=== PATIENT | male | born 1990 | race Caucasian/White ===

== ENCOUNTER 2016-12-18 19:17 | Observation (INO) | payer OTHER ==
[~2016-12-18] VITALS: Ht 177.8 cm; Wt 64.0 kg
[2016-12-18 19:29] VITALS: BP 112/69; PULSE 76; RESP 16; O2SAT 100
[2016-12-18 19:48] VITALS: BP 128/68; PULSE 63; RESP 14; O2SAT 100
[2016-12-18 20:01] LABS: BASOPHILS % (AUTO) 0.1 % (0-3); EOSINOPHILS % (AUTO) 0 % (0-5); MONOCYTES % (AUTO) 1.8 % (4-12); Mean Corpuscular Hemoglobin 29.8 pg (27.0-35.0); Mean Corpuscular Volume 87.2 fL (81-100); NEUTROPHILS % (AUTO) 91.2 % (40-74); Platelet Count 292 bil/L (150-400)
[2016-12-18 20:27] LABS: Magnesium 1.6 mg/dL (1.6-2.6)
[2016-12-18] MEDS ORDERED: Pantoprazole 4 mg/mL 10 mL Inj IVPUSH ONE (20:50)
[2016-12-18] MEDS ORDERED: MetoCLOpramide 5 mg/mL 2 mL Inj IVPUSH ONE (20:50)
--- NOTE | 2016-12-18 20:52 | ED.REPORT ---
HPI-General Illness Date of Service Dec 18, 2016 ED Provider: Zack Bhatia MD This is a 26 year old male with a history of Type 1 DM presenting to the emergency department complaining of vomiting that worsened 2 weeks ago. Pt previously diagnosed with gastroparesis. Reports frequent vomiting and inability to keep PO down. Associated symptoms include esophageal burning sensation. Pt taking Tums which have not provided relief. Denies changes in blood sugars despite not being able to eat or drink. Not taking antacids or anti -nausea medications. Pt been evaluated several times with similar presentation, last at [facility] 2 days ago, treated with anti-emetics. Nursing Notes Stated Complaint: VOMITING,DEHYDRATED Chief Complaint: Male Abdominal Pain Nursing Notes Reviewed: Yes Allergies: Coded Allergies: No Known Allergies (Unverified , 12/18/16) Scheduled Insulin Detemir (Levemir U100 Insulin Vial) 100 Unit/1 Ml Vial 20 UNIT SUBQ DAILYWD Insulin Human Lispro (HumaLOG U100 Insulin Vial) 100 Unit/Ml Unit 4-5 UNIT SUBQ TIDWM Only if eats Omeprazole (Omeprazole) 20 Mg Capsule.dr 20 MG PO BID Sertraline HCl (Sertraline) 20 Mg/1 Ml Oral.conc 50 MG PO HS Scheduled PRN Lorazepam (Ativan) 0.5 Mg Tablet 0.5 MG PO TID PRN PRN For Nausea Metoclopramide (Reglan) 5 Mg Tablet 5 MG PO QID PRN PRN For Nausea Omeprazole (Omeprazole) 20 Mg Capsule.dr 20 MG PO QAM PRN PRN For Dyspepsia or Heartburn General Time Seen by MD: 19:43 Chief Complaint Vomiting Hx Obtained From: Patient Arrived By: Walk-in Sudden in Onset?: Yes Onset Occurred: More than a week ago... (2 weeks) Symptom Duration: Since onset Severity: Current: Mild Pertinent Negative: Pt denies other symptoms Recent Healthcare: No recent hospitalization, Recent doctor visit Similar Sx Previous: No Past Medical History Past Medical History Reports: Diabetes mellitus Past Surgical History Denies Ambulatory Status Independent Review of Systems Full Review of Systems Constitutional: Denies: Chills, Fever Respiratory: Denies: Non-productive cough, Shortness of breath GI: Reports: Abdominal pain, Nausea, Vomiting, Denies: Constipation, Diarrhea, Hematemesis, Hematochezia Neurologic: Denies: Headache Complete sys rev & neg: except as marked. Physical Exam Vital Signs Vital Signs Date Time Temp Pulse Resp B/P Pulse Ox O2 Delivery O2 Flow Rate FiO2 12/18/16 19:48 63 14 128/68 100 Room Air 12/18/16 19:29 36.1 76 16 112/69 100 Room Air Initial VS: Reviewed Head / Eyes: Atraumatic, Normocephalic, PERRL Neck: Supple, Non-tender, Full range of motion Respiratory: Breath sounds normal, Clear to auscultation, No respiratory distress Cardiovascular: Regular rate & rhythm, Heart sounds normal, Intact distal pulses Extremities: Vascular intact, Neuro intact, No swelling, No tenderness Skin: Warm, Dry, No cyanosis Neurologic: Alert, Oriented, Nonfocal Psychiatric: Mood/affect normal, Behavior normal, Normal thought content General/Constitutional: Awake, Alert Pale ENT: Airway patent Mouth: Positive: Mucous membranes dry Abdomen: Soft, No guarding, No rebound, BS normoactive Tenderness/Guarding/Rebound: Positive: Tender epigastric Interpretation & Diagnostics Lab Results Interpretation Result Diagram: 12/18/16194212/18/161942 Test 12/18/16 19:43 12/18/16 20:20 White Blood Count 10.5th/mm3 (3.8-10.1) Red Blood Count 4.70mil/mm3 (4.40-5.80) Hemoglobin 14.0g/dL (13.8-17.2) Hematocrit 41.0% (41.0-50.0) Mean Corpuscular Volume 87.2fL (81-100) Mean Corpuscular Hemoglobin 29.8pg (27.0-35.0) Mean Corpuscular Hemoglobin Concent 34.1% (32.0-37.0) Red Cell Distribution Width 12.2% (12.3-15.4) Platelet Count 292bil/L (150-400) Neutrophils (%) (Auto) 91.2% (40-74) Lymphocytes (%) (Auto) 6.6% (14-46) Monocytes (%) (Auto) 1.8% (4-12) Eosinophils (%) (Auto) 0% (0-5) Basophils (%) (Auto) 0.1% (0-3) Hold Purple Top Tube Received (Received) Hold Blue Top Tube Received (Received) Sodium Level 136mEq/L (134-144) Potassium Level 4.3mEq/L (3.5-5.2) Chloride Level 91mEq/L (97-108) Carbon Dioxide Level 28mmol/L (18-29) Blood Urea Nitrogen 14mg/dL (6-20) Creatinine 0.94mg/dL (0.76-1.27) Estimat Glomerular Filtration Rate 102mL/min (>59) Glucose Level 387mg/dL (60-99) Calcium Level 9.5mg/dL (8.5-10.1) Magnesium Level 1.6mg/dL (1.6-2.6) Total Bilirubin 0.5mg/dL (0.0-1.2) Aspartate Amino Transf (AST/SGOT) 38U/L (0-50) Alanine Aminotransferase (ALT/SGPT) 36U/L (0-44) Alkaline Phosphatase 90U/L (25-150) Total Protein 8.0g/dL (6.4-8.4) Albumin 4.8g/dL (3.4-5.0) Lipase 12U/L (13-60) Hold [place] Top Tube Received (Received) Hold Vincent Top Tube Received (Received) Urine Color Yellow (YELLOW) Urine Appearance Hazy (CLEAR,HAZY) Urine pH 5.5 (5.0-8.0) Urine Specific [place] 1.015 (1.003-1.035) Urine Protein Negativemg/dL (NEG,TRACE) Urine Glucose (UA) 500mg/dL (NEGATIVE) Urine Ketones 80mg/dL (NEGATIVE) Urine Occult Blood Small (NEGATIVE) Urine Nitrite Negative (NEGATIVE) Urine Bilirubin Negative (NEGATIVE) Urine Urobilinogen Normalmg/dL (NORMAL) Urine Leukocyte Esterase Negative (NEGATIVE) Urine RBC 3-10/hpf (0-2) Urine WBC 0-5/hpf (0-5) Urine Epithelial Cells Occasional/hpf (NONE-MOD) Urine Crystals None seen (NONE SEEN) Urine Bacteria Few/hpf (NONE-FEW) Urine Hyaline Casts None/lpf (NONE) Urine Granular Casts None seen (NONE SEEN) Urine Waxy Casts None seen (NONE SEEN) Urine Red Blood Cell Casts None seen (NONE SEEN) Urine White Blood Cell Casts None seen (NONE SEEN) Urine Mucus None seen (None Seen) Urine Trichomonas None seen (NONE SEEN) Urine Yeast None (NONE SEEN) Urinalysis Comment None Urine Culture Reflexed Not indicated Hold Urine Received (Received) Re-Eval/Medical Decision Med Decision/Clinical Course Patient is a 26-year-old male with a history of type I diabetes who is presented to the emergency department for several months of progressively worsening regurgitation of his gastric contents, GERD, decreased appetite and a 30 pound weight loss that is been unintentional. He has been seen in 3 different emergency departments and diagnosed a gastroparesis though BuSpar has been unable to control his symptoms. He is accompanied by family and friends who are very concerned about the degree of his recent decline. Upon arrival, the patient is pale and generally unwell-appearing with gagging into an emesis bag. Laboratory studies were notable as below: Urine Dip positive ketones, glucose, and blood CBC unremarkable glucose elevated 387 CMP otherwise unremarkable anion gap 17 Given: IV fluids, Benadryl, Reglan, IV pantoprazole Patient was evaluated thereafter and continued to be uncomfortable with inability to tolerate PO. At this time, the patient is been seen in 3 different emergency departments and has failed to adequately control his symptoms on an outpatient basis. After discussing this with the patient as well as family and friends they do not feel comfortable with discharge at this moment. The patient will be maintained in the emergency department with ongoing IV fluids and antibiotics. If we are unable to adequately control her symptoms he will be admitted. He was quite anxious and tightness 1 mg of IV Ativan. My assessment of the patient he was feeling better but needed more time to see if he would be able to tolerate PO. Patient will be reassessed with plan for discharge with omeprazole, Ativan as needed and Reglan for nausea. Time of Eval: 21:28 Patient Status: Condition unchanged Re-Evaluation/Progress Note: Condition unchanged, plan for re-evaluation. Consultation : Referral / Consult Name: Larry Garcia MD Consulted With: Hospitalist Call Returned at: 21:35 Continuous Miner: Agrees with eval, Agrees with plan Counseled Regarding: Diagnosis, Lab results, Need for follow-up, Need for admission Discharge & Departure Primary Impression: Gastroparesis Additional Impressions: Diabetes Diabetes mellitus type: type 1 Diabetes mellitus complication status: with unspecified complications Qualified Code: E10.8 - Type 1 diabetes mellitus with unspecified complications Dehydration Discharge Condition All VS Reviewed: Yes Condition: Stable Patient Instructions: Diabetic gastroparesis (GEN) Additional Instructions: Thank you for seeking care at emergency room. It is difficult for us to make definitive diagnoses in the ED but we believe that you are experiencing gastroparesis. Our primary goal today in the ED was to evaluate you for any life-threatening conditions. Your evaluation was reassuring. Take medications as prescribed. Reglan for nausea control, Ativan for breakthrough nausea and anxiety, and omeprazole as needed for acid reflux. You should follow-up with the GI doctor listed below, call tomorrow morning to schedule an appointment for further evaluation of your symptoms. You should return to the ED immediately if you develop fevers, vomiting, cough, shortness of breath, chest pain, lightheadedness, weakness or any other concerning signs or symptoms. Thank you for letting us partake in your care today. Referrals: Kirill Bennett MD Care Transferred to: Dr. Quintana at a change of shift Care Transferred at: 00:00 Scribe Attestation Portions of this note were transcribed by Deena Land. I, Dr. Bhatia personally performed the history, physical exam and medical decision-making; I reviewed and confirmed the accuracy of the information in the transcribed note. Signed by: milton Ho. 12/18/2016, 23:30. Zack Bhatia MD Dec 18, 2016 20:52 DEENA LAND Dec 18, 2016 20:59
[2016-12-18] MEDS ORDERED: 0.9% Sodium Chloride 1,000 ML IV ONE ×2 (20:55→23:25)
[2016-12-18 21:17] LABS: APPEARANCE,URINE HAZY (CLEAR,HAZY); COLOR,URINE YELLOW (YELLOW); OCCULT BLOOD,URINE SMALL (NEGATIVE); PH,URINE 5.5 (5.0-8.0); UROBILINOGEN,URINE NORMAL (NORMAL)
[2016-12-18] MEDS ORDERED: INSU100V4 SUBQ (21:27)
[2016-12-18] MEDS ORDERED: INSLIS SUBQ (21:28)
[2016-12-18] MEDS ORDERED: OMEP20CA11 PO ×2 (21:29→22:04)
[2016-12-18] MEDS ORDERED: SERT20OR6 PO (21:29)
[2016-12-18] MEDS ORDERED: Alum-Mag Hydrox-Simeth 30 mL Suspension PO PRN (21:30)
[2016-12-18] MEDS ORDERED: Ondansetron 2 mg/mL 2 mL Inj IVPUSH PRN (21:30)
[2016-12-18] MEDS ORDERED: LORA-302 PO (22:04)
[2016-12-18] MEDS ORDERED: METO5TAB78 PO (22:04)
[2016-12-18 23:11] VITALS: BP 110/61; PULSE 80; RESP 13; O2SAT 96
[2016-12-19] MEDS ORDERED: Alum-Mag Hydrox-Simeth 30 mL Suspension PO PRN (00:30)
[2016-12-19] MEDS ORDERED: Polyethylene Glycol (PEG) 17 Gm Powder PO PRN (00:30)
[2016-12-19] MEDS ORDERED: Ondansetron 2 mg/mL 2 mL Inj IVPUSH PRN (00:30)
[2016-12-19 00:50] VITALS: BP 132/81; PULSE 72; RESP 20; O2SAT 100
[2016-12-19] MEDS: 0.9% Sodium Chloride 1,000 ML IV SCH ×2 (01:36→11:57)
--- NOTE | 2016-12-19 01:56 | PCM.HPMED ---
Subjective Date of Service Dec 19, 2016 Primary Provider: Admitting Physician: Larry Garcia MD Primary Care Physician: Simone Alcantara MD Attending Physician: Larry Garcia MD Admit Status: From the Emergency Department Chief Complaint: nausea and vomiting History of Present Illness: 26-year-old male patient with history of type I diabetes presents to the ER with complaints of intractable nausea and vomiting. Patient reports that he has been seen at [facility] as well as [facility] in [place] for his symptoms of nausea and vomiting in the past few weeks. Patient reports that he was recently diagnosed with gastroparesis secondary to his diabetes. Patient reports that the nausea and vomiting has been present since December 2015, patient feels that he has been worsening over the past few months and is worse today. Patient reports nausea, vomiting of mucus. He states that he is not eating because soon as he eats he has the urge to vomit. Patient denies any hematemesis. Patient denies any abdominal pain. Patient reports that he is currently experiencing headache, palpitations, dry mouth, mild shortness of breath. Patient reports that he is vomiting almost hourly, or when he eats food. Patient states he has not been seen by senior game designer or an dredge operator supervisor. Patient reports that he smokes marijuana nightly, and reports that taking hot showers seem to be only thing that will relieve his nausea and vomiting. In the ER patient had a temperature 36.1, pulse 76, respiratory rate 16, blood pressure 112/69, pulse ox 100 on room air. Review of Systems: A comprehensive review of systems was conducted with the patient and found to be negative except as above in the History of Present Illness. Allergies Coded Allergies: No Known Allergies (Unverified , 12/18/16) Home Medications Levemir Humalog Zoloft PMH Diabetes type 1 Depression Surgical History Finger laceration Family History Depression Social History Hx Alcohol Use: No Hx Substance Use: Yes (marijuana daily) Hx Tobacco Use: Yes Smoking Status: Current Every Day Smoker Living Arrangement: with Family Exam Vital Signs Vital Sign - Last Date Time Temp Pulse Resp B/P Pulse Ox O2 Delivery O2 Flow Rate FiO2 12/18/16 23:11 80 13 110/61 96 Room Air 12/18/16 19:29 36.1 Intake and Output 2/23/17 2/23/17 2/24/17 Cumulative From/Thru 15:00 23:00 07:00 12/18/16 19:29 - 12/18/16 23:49 Intake Total 2000 ml 1000 ml 3000 ml Balance 2000 ml 1000 ml 3000 ml Intake IV Total 2000 ml 1000 ml 3000 ml Exam General: Thin, pale male supine on hospital bed. Somnolent. No acute distress. HEENT: Normocephalic, atraumatic. External ears without defect. Pupils equal, round, and reactive to light and accommodation. Moist conjunctivae. Oropharynx with moist mucosa. Neck: Supple with full range of motion.No lymphadenopathy Cardiovascular: Regular rate and rhythm with no murmurs, rubs, or gallops appreciated Pulmonary: Clear to auscultation bilaterally with no crackles, wheezes, or rhonchi. Normal respiratory effort with no use of accessory muscles. Abdomen: Bowel tones present. Soft, nontender, nondistended. Extremities: No clubbing, cyanosis, edema, appreciated. Skin: Pale. Normal temperature, turgor, and texture; no rash, ulcers, or subcutaneous nodules appreciated. Psychiatric: Somnolent, slow to respond to questions, does not provide details when answering questions. Lab and Diagnostics Result Diagram: 12/18/16194212/18/161942 Assessment & Plan Intractable nausea and vomiting of unknown etiology, present on admission, ongoing -Pt has been seen at multiple ERs( [facility], [facility]) and Urgent Care in the past few weeks. -Possible causes include cyclic vomiting secondary to daily marijuana usage, especially as pt reports improvement with hot showers. Other possibilities include gastroparesis, gastroenteritis, uncontrolled diabetes. -Patient given IV fluids, Zofran, Reglan while in the ER, with improvement of symptoms -Pt has minimal leukocytosis of 10.5. Recheck AM labs -Lipase not elevated, at 12. -UA with 500 glucose. Culture not indicated -Pt has remained hemodynamically stable -EKG ordered to assess QTC -IVF NS at 100mls/hr -Advance diet as tolerated -If not improving, consider CT of brain to assess for neurological component, and further evaluation for possible causes Type 1 diabetes, present on admission, ongoing -Pt presented to ER with hyperglycemia, but not DKA -Diabetic diet, when able to tolerate diet -Monitor blood glucose closely -Patient to continue with his home regimen of insulin dosing -A1C has been ordered Marijuana usage, present on admission, ongoing -May be contributing to nausea and vomiting. Depression,presumed stable -Once medication reconciliation is complete, will restart home medications. Pain Evaluation: Adequate Pain Control VTE Mechanical Devices: Intermittant Pneumatic CD Resuscitation Status: CPR: Attempt Resuscitation Attending Statement The patient was seen and examined together with Dr. Gutierrez on 12/18 and I agree with the history, exam and plan as outlined in the note above. copies to: Simone Alcantara MD,Su Pedersen DO Dec 19, 2016 01:05 Larry Garcia MD Dec 19, 2016 06:29
--- NOTE | 2016-12-19 03:52 | NUR ---
Admit to room 3005 @ 00:15 with gastroparesis. A&Ox3, vss, 100% o2 sat on RA. Pain 6/10 due to acid reflux. Oriented to room and POC on whiteboard.
--- NOTE | 2016-12-19 03:55 | NUR ---
Med Rec Verified with patient medications currently taking and pharmacy. No known allergies also verified.
[2016-12-19 04:56] VITALS: PULSE 82
[2016-12-19 05:46] VITALS: BP 118/67; PULSE 87; RESP 20; O2SAT 97
[2016-12-19 06:14] LABS: BASOPHILS % (AUTO) 0.1 % (0-3); EOSINOPHILS % (AUTO) 0 % (0-5); MONOCYTES % (AUTO) 9.9 % (4-12); Mean Corpuscular Hemoglobin 29.5 pg (27.0-35.0); Mean Corpuscular Volume 88.5 fL (81-100); Platelet Count 231 bil/L (150-400)
[2016-12-19 08:00] VITALS: PULSE 68
[2016-12-19] MEDS: Insulin LISPRO 300 Unit/3 mL Inj SUBQ SCH ×2 (08:00→12:00)
[2016-12-19] MEDS ORDERED: diphenhydrAMINE 25 mg Capsule PO PRN (08:55)
[2016-12-19] MEDS ORDERED: Pantoprazole 20 mg ER24 Tablet PO ONE (08:55)
[2016-12-19] MEDS ORDERED: diphenhydrAMINE 25 mg Capsule PO ONE (08:55)
[2016-12-19 09:08] VITALS: BP 117/66; PULSE 64; RESP 18; O2SAT 99
[2016-12-19 13:04] VITALS: BP 121/70; PULSE 80; RESP 18; O2SAT 99
--- NOTE | 2016-12-19 14:53 | NUR ---
Social Work: Screening Data: Pt is a 26 y/o male admitted for gastroparesis, dehydration. Pt's PCP is Dr Alcanatra, pt's insurance is [facility] [employer] [facility] admin. EMR reviewed, no readmit score listed. No d/c planning needs anticipated at this time. LEATHER POLISHER will continue to follow if needs arise. Assessment: Pt who is independent at baseline. Plan: Pt will d/c home via POV when medically stable. No d/c planning needs anticipated at this time. LEATHER POLISHER will continue to follow if needs arise. TERRY Shaw
[2016-12-19] MEDS ORDERED: LORA-302 PO (14:58)
[2016-12-19] MEDS ORDERED: OMEP20CA11 PO (14:58)
[2016-12-19] MEDS ORDERED: METO5TAB78 PO (14:58)
[2016-12-19] MEDS ORDERED: DIPH25CA6 PO (14:58)
--- NOTE | 2016-12-19 15:04 | NUR ---
Social Work: Discharge Data: Pt is on day 1 of hospitalization for gastroparesis, dehydration. EMR reviewed. D/C orders are in. No further d/c planning needs at this time. CLIENT CUSTOMER MANAGER will continue to follow if needs arise. Assessment: Pt who is independent at baseline. Plan: Pt will d/c home via POV today. No further d/c planning needs at this time. CLIENT CUSTOMER MANAGER will continue to follow if needs arise. TERRY Shaw
--- NOTE | 2016-12-19 15:44 | PCM.DIMED ---
Discharge Instructions Date of Service Dec 19, 2016 Dates of Hospitalization Dec 18, 2016 at 23:48 Discharge Diagnosis Discharge Diagnosis Cyclic vomiting syndrome, associated with marihuana abuse Medication Instructions If you start having symptoms, nausea, vomiting You can take Reglan 5mg four times a day as needed take lorazepam 0.5mg four times a day as needed take zofran 4mg to 8mg four times a day as needed you can also take, omeprazole, anti-acid pills twice a day if your experiences stomach pain Diet Other (slowly advance your diet for day or two until you can safely eat) Activity No restrictions Call your provider Vomitting, Excessive diarrhea Patient Instructions You were hospitalized with intractable nausea, vomiting, likely related to marijuana smoking. Please follow recommendations as we discussed, strict sugar control, complete cessation of marijuana, medical treatment as needed. Please note that if symptoms continue with behavioral treatment, it is recommended to see hearing screen coordinator. Follow-up plan Please follow up with your primary doctor in 2weeks Follow-up Provider: Simone Alcantara MD Follow-up with PCP in: 2 weeks Herb Hodges MD Dec 19, 2016 15:38
--- NOTE | 2016-12-19 15:58 | NUR ---
Discharge: Pt a/o, VSS, RA O2 sats 98%. Pt continues to c/o intermittent nausea, Reglan/Benedryl/Protonix effective for moderate relief. IV d/c'd intact. Extensive discussion r/t future plan, med management, cannabis cessation. Discussed follow-up with PCP and with GI. D/c'd home with all personal belongings.
--- NOTE | 2016-12-19 16:24 | PCM.DC.MED ---
Discharge Summary Date of Service Dec 19, 2016 Dates of Hospitalization Date of Hospital Admission Dec 18, 2016 at 23:48 Date of Discharge: Dec 19, 2016 Providers: Admitting Physician: Larry Garcia MD Primary Care Physician: Simone Alcantara MD Attending Physician: Larry Garcia MD Diagnosis at Time of Discharge Diagnosis at Time of Discharge Cyclic vomiting syndrome, associated with marihuana abuse chronic problems 2.Type 1 diabetes 3 Marijuana usage 4 Depression Procedures ECG 12 Lead sinus 75 Brief History HPI obtained by on 12/18 26-year-old male patient with history of type I diabetes presents to the ER with complaints of intractable nausea and vomiting. Patient reports that he has been seen at [facility] as well as [facility] in [place] for his symptoms of nausea and vomiting in the past few weeks. Patient reports that he was recently diagnosed with gastroparesis secondary to his diabetes. Patient reports that the nausea and vomiting has been present since December 2015, patient feels that he has been worsening over the past few months and is worse today. Patient reports nausea, vomiting of mucus. He states that he is not eating because soon as he eats he has the urge to vomit. Patient denies any hematemesis. Patient denies any abdominal pain. Patient reports that he is currently experiencing headache, palpitations, dry mouth, mild shortness of breath. Patient reports that he is vomiting almost hourly, or when he eats food. Patient states he has not been seen by music promoter or an shift mechanic. Patient reports that he smokes marijuana nightly, and reports that taking hot showers seem to be only thing that will relieve his nausea and vomiting. In the ER patient had a temperature 36.1, pulse 76, respiratory rate 16, blood pressure 112/69, pulse ox 100 on room air. Hospital Course acute 1. Intractable nausea and vomiting pt received PPI, antiemetics, motility agents, symptoms were controlled, Given increasing recent marijuana smoking, it was thought to be cyclic vomiting syndrome a/w marijuana. As per patient, glc has been well controlled, never admitted with DKA in the past, it is unlikely that prolonged hyperglycemia with autonomic neuropathy contributed to his symptoms greatly, although pt had glc> 500 in UA on admission, glc>300s in chemistry, a1c was still pending upon d/c. pt was strongly encouraged to stop marijuana abuse, strict sugar control to prevent future episodes. chronic, stable 2. Type 1 diabetes, controlled with home insulin dose 3 Marijuana usage, 4 Depression Exam Vital Signs (Last) Date Time Temp Pulse Resp B/P Pulse Ox O2 Delivery O2 Flow Rate FiO2 12/19/16 13:04 37.2 80 18 121/70 99 Room Air Exam NAD, comfortably laying down on the bed no JVD, MMM, no LAD RRR, nl s1, s2 no mrg CTAB, no w,c S,ND,NT,normoactive BS+ warm, no edema, pulses 2/2 Test 12/18/16 19:43 12/18/16 20:20 12/19/16 05:00 12/19/16 05:31 Hold Purple Top Tube Received (Received) Hold Blue Top Tube Received (Received) Lipase 12U/L (13-60) Hold [place] Top Tube Received (Received) Hold [place] Top Tube Received (Received) Urine Color Yellow (YELLOW) Urine Appearance Hazy (CLEAR,HAZY) Urine pH 5.5 (5.0-8.0) Urine Specific [place] 1.015 (1.003-1.035) Urine Protein Negativemg/dL (NEG,TRACE) Urine Glucose (UA) 500mg/dL (NEGATIVE) Urine Ketones 80mg/dL (NEGATIVE) Urine Occult Blood Small (NEGATIVE) Urine Nitrite Negative (NEGATIVE) Urine Bilirubin Negative (NEGATIVE) Urine Urobilinogen Normalmg/dL (NORMAL) Urine Leukocyte Esterase Negative (NEGATIVE) Urine RBC 3-10/hpf (0-2) Urine WBC 0-5/hpf (0-5) Urine Epithelial Cells Occasional/hpf (NONE-MOD) Urine Crystals None seen (NONE SEEN) Urine Bacteria Few/hpf (NONE-FEW) Urine Hyaline Casts None/lpf (NONE) Urine Granular Casts None seen (NONE SEEN) Urine Waxy Casts None seen (NONE SEEN) Urine Red Blood Cell Casts None seen (NONE SEEN) Urine White Blood Cell Casts None seen (NONE SEEN) Urine Mucus None seen (None Seen) Urine Trichomonas None seen (NONE SEEN) Urine Yeast None (NONE SEEN) Urinalysis Comment None Urine Culture Reflexed Not indicated Urine Opiates Screen Negative Urine Methadone Screen Negative Urine Barbiturates Screen Negative Urine Amphetamines Screen Negative Urine Benzodiazepines Screen Negative Urine Cocaine Metabolite Screen Negative Urine Cannabinoids Screen Positive Magnesium Level 1.7mg/dL (1.6-2.6) White Blood Count 12.4th/mm3 (3.8-10.1) Red Blood Count 3.83mil/mm3 (4.40-5.80) Hemoglobin 11.3g/dL (13.8-17.2) Hematocrit 33.9% (41.0-50.0) Mean Corpuscular Volume 88.5fL (81-100) Mean Corpuscular Hemoglobin 29.5pg (27.0-35.0) Mean Corpuscular Hemoglobin Concent 33.3% (32.0-37.0) Red Cell Distribution Width 12.2% (12.3-15.4) Platelet Count 231bil/L (150-400) Neutrophils (%) (Auto) 66.0% (40-74) Lymphocytes (%) (Auto) 23.8% (14-46) Monocytes (%) (Auto) 9.9% (4-12) Eosinophils (%) (Auto) 0% (0-5) Basophils (%) (Auto) 0.1% (0-3) Sodium Level 143mEq/L (134-144) Potassium Level 3.8mEq/L (3.5-5.2) Chloride Level 104mEq/L (97-108) Carbon Dioxide Level 26mmol/L (18-29) Blood Urea Nitrogen 10mg/dL (6-20) Creatinine 0.62mg/dL (0.76-1.27) Estimat Glomerular Filtration Rate 164mL/min (>59) Glucose Level 58mg/dL (60-99) Calcium Level 8.2mg/dL (8.5-10.1) Total Bilirubin 0.4mg/dL (0.0-1.2) Aspartate Amino Transf (AST/SGOT) 27U/L (0-50) Alanine Aminotransferase (ALT/SGPT) 24U/L (0-44) Alkaline Phosphatase 68U/L (25-150) Total Protein 5.9g/dL (6.4-8.4) Albumin 3.8g/dL (3.4-5.0) Test 12/19/16 15:07 Hold Urine Received (Received) Discharge Medications Discharge Medications Insulin Detemir (Levemir U100 Insulin Vial) 100 Unit/1 Ml Vial 20 UNIT SUBQ DAILYWD (Reported) Insulin Human Lispro (HumaLOG U100 Insulin Vial) 100 Unit/Ml Unit 4-5 UNIT SUBQ TIDWM (Reported) Only if eats Omeprazole (Omeprazole) 20 Mg Capsule.dr 20 MG PO BID Prescribed by: LILLI AYALA MD Sertraline HCl (Sertraline) 20 Mg/1 Ml Oral.conc 50 MG PO HS (Reported) As needed Lorazepam (Ativan) 0.5 Mg Tablet 0.5 MG PO TID PRN PRN For Nausea Prescribed by: LILLI AYALA MD Metoclopramide (Reglan) 5 Mg Tablet 5 MG PO QID PRN PRN For Nausea Prescribed by: LILLI AYALA MD diphenhydrAMINE HCl (Benadryl) 25 Mg Capsule 25 MG PO Q6H PRN PRN For Itching Prescribed by: LILLI AYALA MD Additional med instructions If you start having symptoms, nausea, vomiting You can take Reglan 5mg four times a day as needed take lorazepam 0.5mg four times a day as needed take zofran 4mg to 8mg four times a day as needed you can also take, omeprazole, anti-acid pills twice a day if your experiences stomach pain Followup Plan Disposition: home Follow-up plan Please follow up with your primary doctor in 2weeks Discharge Diet: Other (slowly advance your diet for day or two until you can safely eat) Discharge Activity: No restrictions Patient Instructions You were hospitalized with intractable nausea, vomiting, likely related to marijuana smoking. Please follow recommendations as we discussed, strict sugar control, complete cessation of marijuana, medical treatment as needed. Please note that if symptoms continue with behavioral treatment, it is recommended to see music promoter. Follow-up Provider: Simone Alcantara MD Follow-up with PCP in: 2 weeks Time spent 65min Lilli Ayala MD Dec 19, 2016 15:47
[2016-12-19] MEDS ORDERED: Insulin GLARgine 100 Unit/mL Syringe SUBQ SCH (17:30)
[2016-12-20] MEDS ORDERED: Pantoprazole 20 mg ER24 Tablet PO SCH (07:30)
[2017-03-20] MEDS ORDERED: SUCR1TAB30 PO (15:23)
[2017-03-20] MEDS ORDERED: INSU100V7 SUBQ (15:23)
== END 2016-12-19 16:01 | disposition home or self-care (01) ==
LOC: SED 19:17 → MPC 23:48 → INTOOBSV 23:48 → MPC 12-19 00:23
PROVIDERS: ADMIT Hospitalist; ATTEND Hospitalist
DX: G43.A0 Cyclical vomiting, in migraine, not intractable (principal); T40.7X5A Adverse effect of cannabis (derivatives), initial encounter; F12.19 Cannabis abuse with unspecified cannabis-induced disorder; F32.9 Major depressive disorder, single episode, unspecified; E10.43 Type 1 diabetes mellitus with diabetic autonomic (poly)neuropathy; K31.84 Gastroparesis; F17.210 Nicotine dependence, cigarettes, uncomplicated; K21.9 Gastro-esophageal reflux disease without esophagitis; Z79.4 Long term (current) use of insulin
CPT/HCPCS: 36415; 80053; 81000; 82948; 83036; 83690; 83735; 85025; 93005; 96361; 96374; 96375; 99285; G0378; G0480; J1200; J1815; J2060; J2405; J2765; J7030

== ENCOUNTER 2017-03-25 08:57 | Day surgery (SDC) | payer OTHER ==
[~2017-03-25] VITALS: Ht 177.8 cm; Wt 63.7 kg
[~2017-03-25 08:57] MED LIST: 0.9% Sodium Chloride 1,000 ML IV SCH; DIPH25CA6 PO; INSLIS SUBQ; INSU100V7 SUBQ; LORA-302 PO; METO5TAB78 PO; OMEP20CA11 PO; SERT20OR6 PO; SUCR1TAB30 PO; Sodium Chloride LOK Flush 10 mL Syringe IV PRN; fentaNYL-PF 50 mCg/mL 2 mL Inj IVPUSH PRN
[2017-03-25 10:12] VITALS: BP 117/75; PULSE 71; RESP 12; O2SAT 95
[2017-03-25 10:56] VITALS: BP 103/62; PULSE 59; RESP 15; O2SAT 95
[2017-03-25 11:06] VITALS: BP 100/62; PULSE 63; RESP 15; O2SAT 95
[2017-03-25 11:16] VITALS: BP 109/69; PULSE 65; O2SAT 96
--- NOTE | 2017-03-25 11:20 | ENDO ---
[address] [address] ENDOSCOPY PROCEDURE PATIENT: MICHAEL VIZCAINO : 1990 MR#: [id number] ADMIT: 03/25/2017 JOB ID: [id number] DATE: 03/25/2017 OPERATION: Esophagogastroduodenoscopy with biopsy. PREOPERATIVE DIAGNOSIS(ES): 1. Dyspepsia. 2. Gastroesophageal reflux disease. POSTOPERATIVE DIAGNOSIS(ES): 1. Mild food in the stomach was seen. 2. Mild nonerosive gastritis, status post biopsy. ANESTHESIA: Fentanyl 125 mcg, Versed 5 mg IV administered. COMPLICATIONS: None. BLOOD LOSS: Minimal. DESCRIPTION OF PROCEDURE: After risks and benefits were explained to the patient, informed consent was obtained. After anesthesia administered, an upper endoscope was inserted in the mouth, intubated into the esophagus, stomach, second portion of duodenum, and mucosa carefully examined. After procedure was done, the scope was withdrawn, and the procedure terminated. FINDINGS: Upon inspection of the esophagus, the esophagus was normal, without masses, ulcers, or lesions. Z-line was located at 40 cm from the incisors. Upon entering the stomach, there was mild food that was seen retained in the stomach. There was also mild nonerosive gastritis. No masses or ulcers were seen. Retroflexion was normal. Duodenal bulb, first and second portion normal. Biopsies taken in the duodenum, antrum, body of stomach, and distal esophagus. IMPRESSION: 1. Mild food in the stomach. 2. Mild nonerosive gastritis, status post biopsy. RECOMMENDATIONS: 1. Await pathology results. 2. Outpatient gastric emptying study. 3. Follow up in GI Clinic as needed.
[2017-03-25 11:26] VITALS: BP 101/62; PULSE 61; RESP 15; O2SAT 96
--- NOTE | 2017-03-26 14:04 | PATH ---
SURGICAL PATHOLOGY Attending Physician:Jun Cheng MD CASE STATUS: Signed Out PATIENT NAME: MICHAEL VIZCAINO PID: [id number] : 1990 DATE COLLECTED:03/25/2017 22:39 SPECIMEN: 1: Duodenum, Biopsy 2: Stomach, Antrum, Biopsy 3: Gastric, Biopsy 4: Esophagus, Biopsy CLINICAL HISTORY: 1). DUODENUM BIOPSY 2). ANTRUM BIOPSY 3). BODY BIOPSY 4). DISTAL ESOPHAGUS BIOPSY FINAL DIAGNOSIS: 1.DUODENUM BIOPSY: FRAGMENTS OF NORMAL-APPEARING DUODENUM MUCOSA. Normal delicate mucosal villi present. Negative for significant inflammation, dysplasia and malignancy. 2.GASTRIC ANTRUM BIOPSY: DIFFUSE MILD CHRONIC GASTRITIS INVOLVING ANTRAL MUCOSA. Negative for evidence of Helicobacter. Negative for intestinal metaplasia. Negative for dysplasia and malignancy. 3.GASTRIC BODY BIOPSY: MILD TO MODERATE CHRONIC GASTRITIS INVOLVING FUNDIC MUCOSA. Negative for evidence of Helicobacter. Negative for intestinal metaplasia. Negative for dysplasia and malignancy. 4.DISTAL ESOPHAGUS BIOPSY: FRAGMENTS OF SQUAMOUS MUCOSA AND GASTRIC CARDIA-TYPE MUCOSA WITH CHRONIC INFLAMMATION AND REACTIVE EPITHELIAL CHANGES. NEGATIVE FOR SPECIALIZED METAPLASIA OF HARPER' S-TYPE ESOPHAGUS. Negative for dysplasia and malignancy. Negative for squamous intraepithelial eosinophils. ICD10 code K29.70 GROSS DESCRIPTION: The specimen is received in four formalin filled containers labeled with the patient's name. 1). The specimen is sublabeled "duodenal" and consists of 2 portions of tissue which aggregate to 0.4 x 0.3 x 0.2 CM. The specimen is entirely submitted in cassette 1A. 2). The specimen is sublabeled "antrum" and consists of 2 portions of tissue which aggregate to 0.3 x 0.3 x 0.2 CM. The specimen is entirely submitted in cassette 2A. 3). The specimen is sublabeled "body" and consists of portions of tissue which aggregate to 0.3 x 0.3 x 0.2 CM. The specimen is entirely submitted in cassette 3A. 4). The specimen is sublabeled "distal esophagus" and consists of 2 portions of tissue which aggregate to 0.3 x 0.3 x 0.2 CM. The specimen is entirely submitted in cassette 4A. 03/26/2017 [facility] MICRO DESCRIPTION: See diagnosis. ICD-9 CODES: CPT CODES: 1: 12434 2: 08020 3: 97675 4: 10075 Electronically Signed Out Javy Olmos MD [facility] [address], [place] [address] Technical component performed at [facility], [address], [place], [address]
== END 2017-03-25 23:59 | disposition home or self-care (01) ==
LOC: END 08:57
PROVIDERS: ATTEND Internal Medicine Gastroenterology
DX: K29.50 Unspecified chronic gastritis without bleeding (principal); K21.9 Gastro-esophageal reflux disease without esophagitis; E11.9 Type 2 diabetes mellitus without complications; F41.8 Other specified anxiety disorders; F12.90 Cannabis use, unspecified, uncomplicated; Z79.4 Long term (current) use of insulin
CPT/HCPCS: 43239; G0500; J7030